=== PATIENT | male | born 1990 | race Caucasian/White ===

== ENCOUNTER 2017-08-20 22:01 | Emergency (ER) | payer SELFPAY ==
[2017-08-20 22:10] VITALS: BP 139/74; PULSE 55; TEMP 98; BMI 31.8
--- NOTE | 2017-08-20 23:16 | PDOC ---
History of Present Illness - General Chief Complaint: Cold Symptoms Stated Complaint: COLD SYMPTOMS Time Seen by Provider: 08/20/17 22:14 History Source: Patient Exam Limitations: No Limitations - History of Present Illness Initial Comments: 08/20/17 23:11 Best Contact: PCP:Dr. Dieudonne Brownlee Pmhx:N/A Pshx:N/A Allergies:NKDA 27-year-old male presents to the emergency department complaining of subjective fever, productive cough 4 days without headache, dizziness, lightheadedness, nausea/vomiting, chills, facial pain, nasal congestion, rhinorrhea, earaches, sore throat, neck pain/stiffness, back pains, chest pain, shortness of breath, abdominal pains, flank pains, urinary symptoms, extremity numbness or tingling sensation. Patient states he's been taking Mucinex which helps bring up his phlegm but doesn't subsided coughing. Past History - Past Medical History Allergies/Adverse Reactions: Allergies Allergy/AdvReac Type Severity Reaction Status Date / Time No Known Allergies Allergy Verified 08/20/17 22:10 Home Medications: Ambulatory Orders Oxycodone HCl/Acetaminophen [Percocet 5-325 mg Tablet -] 1 - 2 tab PO Q4H #10 tablet 02/20/14 Penicillin V Potassium [Pen Vee K -] 500 mg PO QID #40 tablet 02/20/14 - Suicide/Smoking/Psychosocial Hx Smoking Status: No Smoking History: Never smoked Have you smoked in the past 12 months: No Number of Cigarettes Smoked Daily: 0 Information on smoking cessation initiated: No Hx Alcohol Use: No Drug/Substance Use Hx: No Substance Use Type: None Review of Systems - Review of Systems Able to Perform ROS?: Yes Comments:: 08/20/17 23:13 CONSTITUTIONAL: Absent: fever, chills, diaphoresis, generalized weakness, malaise, loss of appetite HEENT: Absent: rhinorrhea, nasal congestion, throat pain, throat swelling, difficulty swallowing, mouth swelling, ear pain, eye pain, visual Changes CARDIOVASCULAR: Absent: chest pain, loss of consciousness, palpitations, irregular heart rate, peripheral edema RESPIRATORY: +cough Absent: shortness of breath, dyspnea with exertion, orthopnea, wheezing, stridor , hemoptysis GASTROINTESTINAL: Absent: abdominal pain, abdominal distension, nausea, vomiting, diarrhea, constipation, melena, hematochezia GENITOURINARY: Absent: dysuria, frequency, urgency, hesitancy, hematuria, flank pain, genital pain MUSCULOSKELETAL: Absent: myalgia, arthralgia, joint swelling SKIN: Absent: rash, itching, pallor HEMATOLOGIC/IMMUNOLOGIC: Absent: easy bleeding, easy bruising, lymphadenopathy, frequent infections Is the patient limited Tajik proficient: No *Physical Exam - Vital Signs Last Vital Signs Temp Pulse Resp BP Pulse Ox 98.0 F 55 L 16 139/74 98 08/20/17 22:08 08/20/17 22:08 08/20/17 22:08 08/20/17 22:08 08/20/17 22:08 - Physical Exam Comments: 08/20/17 23:14 GENERAL: Well developed, well nourished. Awake and alert. No acute distress. HEENT: Normocephalic, atraumatic. PERRLA, EOMI. No conjunctival pallor. Sclera are non- icteric. Moist mucous membranes. Oropharynx is clear. NECK: Supple. Full ROM. No JVD. Carotid pulses 2+ and symmetric, without bruits. No thyromegaly. No lymphadenopathy. CARDIOVASCULAR: Regular rate and rhythm. No murmurs, rubs, or gallops. Distal pulses are 2+ and symmetric. PULMONARY: No evidence of respiratory distress. Lungs clear to auscultation bilaterally. No wheezing, rales or rhonchi. ABDOMINAL: Soft. Non-tender. Non-distended. No rebound or guarding. No organomegaly. Normoactive bowel sounds. MUSCULOSKELETAL Normal range of motion at all joints. No bony deformities or tenderness. No CVA tenderness. EXTREMITIES: No cyanosis. No clubbing. No edema. No calf tenderness. SKIN: Warm and dry. Normal capillary refill. No rashes. No jaundice. NEUROLOGICAL: Alert, awake, appropriate. Cranial nerves 2-12 intact. No deficits to light touch and temperature in face, upper extremities and lower extremities. No motor deficits in the in face, upper extremities and lower extremities. Normoreflexic in the upper and lower extremities. Normal speech. Toes are down- going bilaterally. Gait is normal without ataxia. PSYCHIATRIC: Cooperative. Good eye contact. Appropriate mood and affect. ED Treatment Course - RADIOLOGY Radiology Studies Ordered: Category Date Time Status CHEST PA & LAT [RAD] Stat Radiology 08/20/17 22:57 Ordered Radiograph Interpretation: 08/20/17 23:15 CXR: 2v NAD *DC/Admit/Observation/Transfer Diagnosis at time of Disposition: Acute bronchitis Qualifiers: Bronchitis organism: unspecified organism Qualified Code(s): J20.9 - Acute bronchitis, unspecified - Discharge Dispostion Condition at time of disposition: Stable Decision to Admit order: No - Referrals Referrals: Augustin Benson MD, MD [Staff Physician] - - Patient Instructions Printed Discharge Instructions: DI for Acute Bronchitis Additional Instructions: Rest Increase fluids [id number] supportive care Follow-up with your physician or the weight loss centre manager listed on your discharge within 48 hours Please return back to the emergency department for severe/persistent or worsening symptoms - Post Discharge Activity
--- NOTE | 2017-08-20 23:18 | PDOC ---
*Physical Exam - Vital Signs Last Vital Signs Temp Pulse Resp BP Pulse Ox 98.0 F 55 L 16 139/74 98 08/20/17 22:08 08/20/17 22:08 08/20/17 22:08 08/20/17 22:08 08/20/17 22:08 Medical Decision Making - Medical Decision Making 08/20/17 23:18 Pt seen by Midlevel Provider under my direct supervision I agree with plan as outlined by Midlevel Provider *DC/Admit/Observation/Transfer Diagnosis at time of Disposition: Acute bronchitis Qualifiers: Bronchitis organism: unspecified organism Qualified Code(s): J20.9 - Acute bronchitis, unspecified - Discharge Dispostion Disposition: HOME Condition at time of disposition: Stable - Prescriptions Prescriptions: Azithromycin [Zithromax -] 250 mg PO UTDICT #6 tab - Referrals Referrals: Augustin Benson MD, MD [Staff Physician] - - Patient Instructions Printed Discharge Instructions: DI for Acute Bronchitis Additional Instructions: Rest Increase fluids [id number] supportive care Follow-up with your physician or the middle school humanities teacher listed on your discharge within 48 hours Please return back to the emergency department for severe/persistent or worsening symptoms - Post Discharge Activity
== END 2017-08-20 23:33 | disposition home or self-care (01) ==
LOC: JER 22:01
DX: J20.9 Acute bronchitis, unspecified (principal)
CPT/HCPCS: 71046-TC-FY; 99281-25

== ENCOUNTER 2018-01-04 06:40 | Emergency (ER) | payer SELFPAY ==
[2018-01-04 06:48] VITALS: TEMP 97.4
[2018-01-04] MEDS ORDERED: morphine CARPU-JECT 4 MG/1 ML DISP.SYRIN IVPUSH ONE ×2 (06:51→07:35)
[2018-01-04 06:52] VITALS: BMI 28.7
[2018-01-04] MEDS ORDERED: morphine SULFATE 4 MG/ML VIAL ONE ×2 (06:52→07:26)
--- NOTE | 2018-01-04 07:31 | PDOC ---
History of Present Illness - General Chief Complaint: Shoulder Dislocation Stated Complaint: R SHOULDER DISLOCATION Time Seen by Provider: 01/04/18 07:22 History Source: Patient Exam Limitations: No Limitations - History of Present Illness Initial Comments: 01/04/18 07:23 He is a 27-year-old male with a history of recurrent shoulder dislocation presents emergency department with right shoulder pain. He woke this morning stating that his shoulder was in severe pain and is unable to move it. Patient denies any traumatic injury. Patient reports for prior shoulder dislocations on the right, and one prior shoulder dislocation on the left. He denies numbness or tingling of the hand. Patient states at the age of 21 he was told that he needed surgery for his shoulder, but then was told by the surgeon that he was too young to have a. 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 MUSCULOSKELETAL: YES: RIGHT SHOULDER PAIN No: back pain, neck pain SKIN: No: lesions, pallor, rash or easy bruising. NEUROLOGIC: No: paresthesias, weakness ENDOCRINE: No: unexplained weight gain or loss HEMATOLOGIC/LYMPHATIC: No: anemia, easy bleeding, swelling nodes. PE: GENERAL: The patient is in no acute distress, crying. HEAD: Normal with no signs of trauma. EYES: PERRLA, EOMI, sclera anicteric, conjunctiva clear. ENT: Ears normal, nares patent, oropharynx clear without exudates. Moist mucous membranes. NECK: Normal range of motion, supple without midline tenderness LUNGS: Breath sounds equal, clear to auscultation bilaterally. HEART:Regular rate and rhythm, normal S1 and S2 without murmur ABDOMEN: Soft, nontender, no guarding, no rebound. EXTREMITIES: Right shoulder deformity, pain with any movement, UNABLE to flex or extend, unable to abduct or adduct Sensation in tact in the hand and overlying the deltoid radial, medial, ulnar motor and sensation in tact in the hand NEUROLOGICAL: Cranial nerves II through XII grossly intact. Normal speech. No focal neurological deficits. MUSCULOSKELETAL: Back non-tender to palpation, see above SKIN: Warm, Dry, normal turgor, no rashes or lesions noted. Past History - Past Medical History Allergies/Adverse Reactions: Allergies Allergy/AdvReac Type Severity Reaction Status Date / Time No Known Allergies Allergy Verified 01/04/18 06:52 Home Medications: Ambulatory Orders Cyclobenzaprine HCl 5 mg PO TID 3 Days #15 tablet 12/05/17 COPD: No - Suicide/Smoking/Psychosocial Hx Smoking Status: No Smoking History: Never smoked Have you smoked in the past 12 months: No Number of Cigarettes Smoked Daily: 0 Information on smoking cessation initiated: No Hx Alcohol Use: No Drug/Substance Use Hx: No Substance Use Type: None *Physical Exam - Vital Signs Last Vital Signs Temp Pulse Resp BP Pulse Ox 97.4 F L 104 H 26 H 157/92 99 01/04/18 06:48 01/04/18 06:48 01/04/18 06:48 01/04/18 06:48 01/04/18 06:48 Procedures - Joint Reduction Right Joint Reduction Site: right: Shoulder Pre-Procedure NV Exam: normal Conscious Sedation: No Reduction Attempts: 1 Procedure: Scapular Manipulation Post-Procedure NV Exam: normal Complications: No Post Joint Reduction Film: joint reduced ED Treatment Course - Medications Given in the ED: ED Medications Discontinued Medications Generic Name Dose Route Start Last Admin Trade Name Freq PRN Reason Stop Dose Admin Morphine Sulfate 4 mg 01/04/18 06:51 01/04/18 07:00 Morphine Injection - IVPUSH 01/04/18 06:52 4 mg ONCE ONE Administration Medical Decision Making - Medical Decision Making 01/04/18 07:42 Right shoulder appears to be dislocated Right shoulder reduction attempted after Morphine was given It appears that the shoulder may be reduced as pt can touch the opposite arm Will send for repeat xray 01/04/18 08:58 Post reduction film reveals appropriate shoulder reduction 2+ DP, 2+ PT Sensation in tact overlying the Deltoid R/M/U motor and sensation intact hand Will discharge to home I have expressed to this patient that he MUST follow up with Ortho Clinical impression: right shoulder dislocation, initial presentation *DC/Admit/Observation/Transfer Diagnosis at time of Disposition: Dislocation, shoulder, anterior Qualifiers: Encounter type: initial encounter Laterality: right Qualified Code(s): S43.014A - Anterior dislocation of right humerus, initial encounter - Discharge Dispostion Disposition: HOME Condition at time of disposition: Stable Decision to Admit order: No - Referrals Referrals: Adal Cali MD [Staff Physician] - Marck Toscano MD [Staff Physician] - Freddy Hernández MD [Staff Physician] - - Patient Instructions Printed Discharge Instructions: DI for Shoulder Dislocation Additional Instructions: Thank you for coming in to the ER today YOU MUST FOLLOW UP WITH THE CONCERT PIANIST YOU MAY NEED ADDITIONAL IMAGING OF YOUR SHOULDER When you injured your shoulder you may have damaged some tissues such as the capsule, ligaments, tendons and muscles in your shoulder. The following are some instructions to prevent any further damage and help these structures heal. Activities Do not lift and rotate your arm outwards. So not lift your arm above shoulder height in any direction. Do not lift heavy objects with your affected arm in general. If this happens again, return to the ER for any other concerns or complaints If possible wear your sling at all times However it can be removed when showering and getting dressed/undressed, sleeping You should wear the sling for as long as the Orthopedist instructs you to do so Take Motrin or Tylenol for pain For the first 48-72 hours you can also use an ice pack (or a bag of frozen peas ) in a damp towel on your shoulder to help with pain and swelling. An ice pack can be used for around 20 minutes every 1-2 hours - Post Discharge Activity Forms/Work/School Notes: Back to Work
[2018-01-04 07:35] VITALS: BP 135/85; PULSE 63
== END 2018-01-04 09:20 | disposition home or self-care (01) ==
LOC: JER 06:40
PROC: 0RSJXZZ Reposition Right Shoulder Joint, External Approach (ICD-10-PCS; principal; 2018-01-04)
DX: S43.014A Anterior dislocation of right humerus, initial encounter (principal); X58.XXXA Exposure to other specified factors, initial encounter; Y93.89 Activity, other specified; Y92.9 Unspecified place or not applicable
CPT/HCPCS: 73030-TC-RT-FY; 99282-25

== ENCOUNTER 2018-06-15 09:53 | Emergency (ER) | payer OTHER ==
[2018-06-15 10:06] VITALS: BP 125/98; PULSE 68; TEMP 98.5; BMI 33.7
--- NOTE | 2018-06-15 10:33 | PDOC ---
History of Present Illness - General Chief Complaint: Respiratory Stated Complaint: COUGHING Time Seen by Provider: 06/15/18 10:17 History Source: Patient Exam Limitations: Clinical Condition - History of Present Illness Initial Comments: 06/15/18 10:33 Patient with no significant past medical history present with complaint of three -day history of intermittent dry cough, nasal congestion, runny nose and throat irritation. Patient reported intermittent sore throat from coughing. Denies fever, chills, shortness of breath or chest pains. Denies any other symptoms Timing/Duration: other (3 days) Past History - Past Medical History Allergies/Adverse Reactions: Allergies Allergy/AdvReac Type Severity Reaction Status Date / Time No Known Allergies Allergy Verified 06/15/18 09:57 Home Medications: Ambulatory Orders Cyclobenzaprine HCl 5 mg PO TID 3 Days #15 tablet 12/05/17 Azithromycin [Zithromax Tri-Kaushal (3 DAYS) -] 500 mg PO DAILY #3 tablet 06/15/18 Benzonatate [Tessalon Pearls -] 100 mg PO TID PRN #21 capsule 06/15/18 Ipratropium Ransom 2 spray NS BID PRN #1 spray 06/15/18 COPD: No - Immunization History Immunization Up to Date: Yes - Suicide/Smoking/Psychosocial Hx Smoking Status: No Smoking History: Never smoked Have you smoked in the past 12 months: No Number of Cigarettes Smoked Daily: 0 Hx Alcohol Use: No Drug/Substance Use Hx: No Substance Use Type: None Review of Systems - Review of Systems Able to Perform ROS?: Yes Is the patient limited Iraqi proficient: No Constitutional: No: Chills, Fever, Malaise HEENTM: Yes: Symptoms Reported, See HPI, Nose Congestion, Throat Pain. No: Eye Pain, Blurred Vision, Tearing, Recent change in vision, Double Vision, Cataracts , Ear Pain, Ocular Prothesis, Ear Discharge, Nose Pain, Tinnitus, Nose Bleeding , Hearing Loss, Throat Swelling, Mouth Pain, Dental Problems, Difficulty Swallowing, Mouth Swelling, Other Respiratory: Yes: Symptoms reported, See HPI, Cough. No: Orthopnea, Shortness of Breath, SOB with Exertion, SOB at Rest, Stridor, Wheezing, Productive cough, Hemoptysis, Other Cardiac (ROS): No: Symptoms Reported, See HPI, Chest Pain, Edema, Irregular Heart Rate, Lightheadedness, Palpitations, Syncope, Chest Tightness, Other ABD/GI: No: Nausea, Vomiting All Other Systems: Reviewed and Negative *Physical Exam - Vital Signs Last Vital Signs Temp Pulse Resp BP Pulse Ox 98.5 F 68 18 125/98 98 06/15/18 09:58 06/15/18 09:58 06/15/18 09:58 06/15/18 09:58 06/15/18 09:58 - Physical Exam Comments: 06/15/18 10:34 GENERAL: Well developed, well nourished. Awake and alert. No acute distress. HEENT: Normocephalic, atraumatic. PERRLA, EOMI. No conjunctival pallor. Sclera are non-icteric. Moist mucous membranes. Oropharynx is clear. NECK: Supple. Full ROM. CARDIOVASCULAR: Regular rate and rhythm. No murmurs, rubs, or gallops. Distal pulses are 2+ and symmetric. PULMONARY: No evidence of respiratory distress. Lungs clear to auscultation bilaterally. No wheezing, rales or rhonchi. ABDOMINAL: Soft. Non-tender. Non-distended. No rebound or guarding. No organomegaly. Normoactive bowel sounds. MUSCULOSKELETAL Normal range of motion at all joints. SKIN: Warm and dry. Normal capillary refill. No rashes. No jaundice. NEUROLOGICAL: Alert, awake, appropriate. Gait is normal without ataxia. PSYCHIATRIC: Cooperative. Good eye contact. Appropriate mood General Appearance: Yes: Nourished, Appropriately Dressed. No: Apparent Distress Moderate Sedation - Procedure Monitoring Vital Signs: Procedure Monitoring Vital Signs Temperature 98.5 F 06/15/18 09:58 Pulse Rate 68 06/15/18 09:58 Respiratory Rate 18 06/15/18 09:58 Blood Pressure 125/98 06/15/18 09:58 O2 Sat by Pulse Oximetry (%) 98 06/15/18 09:58 Medical Decision Making - Medical Decision Making 06/15/18 10:35 Patient with no significant past medical history present with complaint of three -day history of URI symptoms with throat irritation from coughing. Patient with no fever or chills. Exam unremarkable lungs clear to auscultation bilateral and no pharyngeal erythema. Symptoms likely URI with throat pain from coughing. Patient is stable for outpatient management for URI with PCP follow-up. *DC/Admit/Observation/Transfer Diagnosis at time of Disposition: Cough, Sore throat URI (upper respiratory infection) Qualifiers: URI type: unspecified URI Qualified Code(s): J06.9 - Acute upper respiratory infection, unspecified - Discharge Dispostion Disposition: HOME Condition at time of disposition: Stable Decision to Admit order: No - Prescriptions Prescriptions: Azithromycin [Zithromax Tri-Kaushal (3 DAYS) -] 500 mg PO DAILY #3 tablet Benzonatate [Tessalon Pearls -] 100 mg PO TID PRN #21 capsule PRN Reason: Cough Ipratropium Ransom 2 spray NS BID PRN #1 spray PRN Reason: nasal congestion - Referrals Referrals: Augustin Caruso [Primary Care Provider] - - Patient Instructions Printed Discharge Instructions: Common Cold Additional Instructions: Take medications as prescribed. Increase fluid intake. Follow-up with primary cast needed. - Post Discharge Activity
== END 2018-06-15 10:46 | disposition home or self-care (01) ==
LOC: JERFT 09:53
DX: J06.9 Acute upper respiratory infection, unspecified (principal)
CPT/HCPCS: 99281-25

== ENCOUNTER 2019-04-04 11:37 | Emergency (ER) | payer OTHER ==
--- NOTE | 2019-04-04 11:46 | PDOC ---
History of Present Illness - General Chief Complaint: Sore Throat Stated Complaint: SORE THROAT Time Seen by Provider: 04/04/19 11:39 History Source: Patient Exam Limitations: No Limitations - History of Present Illness Initial Comments: 04/04/19 11:43 29 y/o male with sore throat that started today and getting worse. No fever or chills. Has not taken anything for the pain. No N/V/d/C. No headache. Past History - Past Medical History Allergies/Adverse Reactions: Allergies Allergy/AdvReac Type Severity Reaction Status Date / Time No Known Allergies Allergy Verified 04/04/19 11:38 Home Medications: Ambulatory Orders NK [No Known Home Medication] 04/04/19 COPD: No - Immunization History Immunization Up to Date: Yes - Psycho Social/Smoking Cessation Hx Smoking Status: No Smoking History: Never smoked Have you smoked in the past 12 months: No Number of Cigarettes Smoked Daily: 0 Hx Alcohol Use: No Drug/Substance Use Hx: No Substance Use Type: None Review of Systems - Review of Systems Able to Perform ROS?: Yes Is the patient limited Hungarian proficient: No Constitutional: No: Chills, Fever HEENTM: Yes: Throat Pain Respiratory: No: Cough, Shortness of Breath Cardiac (ROS): No: Chest Pain ABD/GI: No: Nausea, Vomiting All Other Systems: Reviewed and Negative *Physical Exam - Physical Exam General Appearance: Yes: Nourished, Appropriately Dressed. No: Apparent Distress HEENT: positive: EOMI, SUZI, Normal ENT Inspection (no redness, exudates or peritonsillar abscess noted), Normal Voice, Symmetrical, Pharynx Normal Neck: positive: Trachea midline, Normal Thyroid, Supple. negative: Tender, Rigid Respiratory/Chest: positive: Lungs Clear, Normal Breath Sounds, Respiratory Distress. negative: Chest Tender Cardiovascular: positive: Regular Rhythm, Regular Rate, S1, S2 Vascular Pulses: Femoral (R): 4+, Femoral (L): 4+, Carotid (R): 4+, Carotid (L) : 4+, Dorsalis-Pedis (R): 4+, Doralis-Pedis (L): 4+ Gastrointestinal/Abdominal: positive: Normal Bowel Sounds, Flat, Soft. negative : Tender, Organomegaly Lymphatic: positive: Adenopathy (b/l cervical lymphadenopathy). negative: Tenderness Musculoskeletal: positive: Normal Inspection. negative: CVA Tenderness Extremity: positive: Normal Capillary Refill, Normal Inspection, Normal Range of Motion. negative: Tender Integumentary: positive: Normal Color, Dry, Warm Neurologic: positive: motion picture set up worker II-XII NML intact, Fully Oriented, Alert, Normal Mood/ Affect, Normal Response, Motor Strength 08/13 ED Treatment Course - ADDITIONAL ORDERS Additional order review: 04/04/19 11:46 Sore throat for 1 day, will obtain strep test 04/04/19 12:15 Strep test negative Dx viral pharyngitis Fluids, rest, Tylenol If worsen return to ER Pt is in agreement with plan Discharge - Discharge Information Problems reviewed: Yes Clinical Impression/Diagnosis: Pharyngitis Qualifiers: Pharyngitis/tonsillitis etiology: unspecified etiology Qualified Code(s): J02.9 - Acute pharyngitis, unspecified Condition: Good Disposition: HOME - Admission No - Follow up/Referral Referrals: Augustin Caruso [Primary Care Provider] - - Patient Discharge Instructions Patient Printed Discharge Instructions: DI for Viral Pharyngitis Additional Instructions: Fluids, rest, Motrin If worsen return to ER - Post Discharge Activity
[2019-04-04 11:56] VITALS: BP 116/76; PULSE 52; TEMP 98.3; BMI 32.8
== END 2019-04-04 12:25 | disposition home or self-care (01) ==
LOC: FER 11:37
DX: J02.9 Acute pharyngitis, unspecified (principal)
CPT/HCPCS: 87070; 87880; 99281-25

== ENCOUNTER 2019-05-28 23:15 | Emergency (ER) | payer OTHER ==
[2019-05-28 23:20] VITALS: BP 136/69; PULSE 108; TEMP 99.1; BMI 33.1
--- NOTE | 2019-05-28 23:20 | PDOC ---
History of Present Illness - General Chief Complaint: Respiratory Stated Complaint: COUGH X 2 DAYS,FEVER Time Seen by Provider: 05/28/19 23:19 History Source: Patient Exam Limitations: No Limitations - History of Present Illness Initial Comments: 05/28/19 23:20 HPI 29 YOM with PMH chronic cervical neck disease and chronic shoulder pain/ dislocations presenting with clear cough x 2 days, today with fever (Tmax 102) and chills/rigors. He endorse chest tightness worse with the coughing episodes, +clear nasal congestion, left ear pain, sweats, headache and dizziness. Also associated with generalized malaise. Today had 3 episodes of nonbloody watery brown stools/diarrhea and nausea. He has been cycling between tylenol and motrin (last dose of tylenol about 2 hours [employer]) with some improvement. he has also tried nyquil and mucinex with minimal improvement. pt baseline has right sided shoulder and neck pain with chronic neck pain/ degenerative disc disease, with prior recurrent shoulder dislocations. +sick contacts several weeks ago where family members had URI symptoms, who have all improved. Denies neck stiffness, myalgias, body aches, arthralgias, syncope, palpitation, weakness, vomiting, abdominal pain, bladder and bowel problems, focal weakness/ paresthesias, leg swelling/pain, rash. No travel. No new changes in medications. No suspicious food intake Allergies: None Past Medical History/PSH: as above Social history: Lives with family. No tobacco, ETOH or drug use. Meds: none Family history: noncontributory Review of systems Constitutional: +fever, chills, generalized weakness and sweats. HEENT: +headache or dizziness. +nasal congestion. +left ear pain. No visual/ hearing disturbances. no eye pain or discharge. CVS: no syncope. +chest pain Resp: +cough, SOB Gastrointestinal: no abdominal pain, No vomiting. +diarrhea and nausea. Genitourinary: no urinary sx, hematuria. MUSCULOSKELETAL: No joint pain and swelling. No neck stiffness, or back pain. SKIN: no redness or skin changes, no discharge, no rash. No wounds. Hematologic: no easy bruising/bleeding. NEUROLOGIC: No LOC or altered mental status. No weakness, numbness or tingling. Psych: no anxiety or depression Allergic/Immunologic: no allergies All other systems reviewed and negative, or as documented in HPI. Physical exam General: Well appearing, awake and alert, NAD. HEENT: NCAT, PERRL, EOMI, clear conjunctiva, anicteric, moist mucus membranes, clear oropharynx, no oral lesions.. uvula midline. normal phonation, TM clear bilaterally, no sinus tenderness to percussion. Neck: neck supple, FROM, no meningeal signs, neg brudzinki's or kernig's sign. Resp: CTAB, normal and even respirations, no respiratory distress CVS: +tachycardia, no murmurs, 2+ peripheral pulses throughout, no peripheral edema Abdomen: soft, NTND, no rebound or guarding. Back: nontender, normal inspection and ROM MSK: no edema, CHAN x4, ROM intact. No clubbing or cyanosis. normal bulk and tone. Extremities: no calf tenderness Neuro: alert, oriented appropriately; no focal neurologic deficits Psych: Calm and cooperative Skin: warm and well perfused, cap refill <2 sec, normal color, no rash or skin discoloration. 05/28/19 23:41 05/28/19 23:44 Past History - Past Medical History Allergies/Adverse Reactions: Allergies Allergy/AdvReac Type Severity Reaction Status Date / Time No Known Allergies Allergy Verified 05/28/19 23:16 Home Medications: Ambulatory Orders Benzonatate [Tessalon Pearls -] 100 mg PO TID PRN #15 capsule 05/28/19 Oseltamivir Phosphate [Tamiflu -] 75 mg PO BID #10 capsule 05/29/19 COPD: No - Immunization History Immunization Up to Date: Yes - Psycho Social/Smoking Cessation Hx Smoking Status: No Smoking History: Never smoked Have you smoked in the past 12 months: No Number of Cigarettes Smoked Daily: 0 Information on smoking cessation initiated: No 'Breaking Loose' booklet given: 04/04/19 Hx Alcohol Use: No Drug/Substance Use Hx: No Substance Use Type: None *Physical Exam - Vital Signs Last Vital Signs Temp Pulse Resp BP Pulse Ox 99.1 F 108 H 16 136/69 99 05/28/19 23:16 05/28/19 23:16 05/28/19 23:16 05/28/19 23:16 05/28/19 23:16 Medical Decision Making - Medical Decision Making 02/17/20 23:48 Vital Signs Temp Pulse Resp BP Pulse Ox 99.1 F 108 H 16 136/69 99 05/28/19 23:16 05/28/19 23:16 05/28/19 23:16 05/28/19 23:16 05/28/19 23:16 Vital signs reviewed here no fever, patient did take Tylenol several hours prior to presentation so likely has defervesced. Mild tachycardia 108 but is nontoxic and in no acute distress. Hemodynamically appropriate, saturations 99 % on room air, no respiratory distress Differential diagnosis includes viral syndrome, influenza, dehydration, bronchitis, pneumonia. Lungs are clear to auscultation, no focal findings elicited so unlikely to be pneumonia. Again patient does not have a fever while here and is nonseptic appearing Given his timeframe of symptoms will obtain flu swab, risks and benefits of flu testing and treatment was discussed with the patient and he prefers to check for the flu and would like testing. no oropharyngeal findings, normal HEENT exam as documented, no strep testing indicated Given ibuprofen, Rx Tessalon Perles for cough. Supportive care measures were advised as this is most likely upper respiratory infection secondary to viral illness, no evidence to utilize antibiotics are indicated this time is doubt this is bacterial. Patient was given instructions including salt water gargles, lemon, tea, elke and honey to soothe the throat as well as a cough Pt to be discharged in stable condition. Patient and family made aware of clinical impression, treatment recommendations and disposition plan, return precautions discussed (including but not limited to new or persistent/worsening symptoms, pain, fevers, or signs of infection, chest pain, respiratory distress , inability to tolerate oral intake, dehydration, syncope, or neurologic changes ). Follow up with PMD and/or specialist as recommended, follow up information provided, take medications as instructed for duration of time. continue with supportive care, avoid triggers and precipitants. All questions answered to patient's satisfaction and expressed understanding and comfort with this. At the time of discharge, the patient is alert, clinically improved, tolerating po and verbalizes understanding of instructions, satisfied with the care received and felt comfortable with the plan. Patient does not suffer from an acute life- threatening medical condition at this time and is safe for outpatient follow- up. 05/29/19 01:55 - influenza test came back positive for flu A called the patient and discussed results, contact precautions, mask, hydration and hand washing. avoid contacts with immunocompromised individuals, elderly, very young children, for risk of spreading infection and potential complications minimize contacts/exposure until >24 hours of being fever free tamiflu sent to pharmacy, BID x 5 days. pt elects for tamiflu, which can reduce course <20 hours, but no necessarily the symptoms. Discharge - Discharge Information Problems reviewed: Yes Clinical Impression/Diagnosis: Influenza A URI (upper respiratory infection) Qualifiers: URI type: unspecified URI Qualified Code(s): J06.9 - Acute upper respiratory infection, unspecified Condition: Stable Disposition: HOME - Admission No - Additional Discharge Information Prescriptions: Benzonatate [Tessalon Pearls -] 100 mg PO TID PRN #15 capsule PRN Reason: Cough Oseltamivir Phosphate [Tamiflu -] 75 mg PO BID #10 capsule - Follow up/Referral [place] [facility] [facility] [place] [facility] [place]] [facility] [Provider Group] - Patient Discharge Instructions Patient Printed Discharge Instructions: Common Cold, DI for Cough -- Adult, DI for Viral Upper Respiratory Infection -- Adult Additional Instructions: RESPIRATORY infection recommendations: these are more natural supplementation that can help you with your symptoms: salt water gargles, 1-2 spoonful of honey and warm lemon tea is appropriate as well for soothing qualities for sore throat/cough. minimize spread of infection given contagious nature, and cover your mouth and wash your hands adequately with soap and water. Stay well hydrated and rest. Cool air - walk around outdoors in the evening. May also try hot shower steam. This can alleviate the congestion and cough. You can also use Riccola - dual action with lemon/honey to soothe your throat and cough. You can also take tessalon perles three times a day as needed for the cough if the above do not work You can take afrin sprays twice a day (not more than 3 days) for nasal congestion OR sudafed via the pharmacy for the nasal congestion (behind the pharmacy counter for the higher dosing). follow up on the flu swab we obtained here Return precautions include respiratory distress, difficulty breathing, cyanosis , chest pain, lethargy, confusion, dehydration, high fevers or pain. - Post Discharge Activity
[2019-05-28] MEDS ORDERED: IBUPROFEN 600 MG TABLET (FP) PO ONE ×2 (23:37→23:39)
== END 2019-05-28 23:47 | disposition home or self-care (01) ==
LOC: FER 23:15
DX: J09.X2 Influenza due to identified novel influenza A virus with other respiratory manifestations (principal); J06.9 Acute upper respiratory infection, unspecified
CPT/HCPCS: 87804; 99283-25

== ENCOUNTER 2021-02-22 17:05 | Emergency (ER) | payer OTHER ==
[2021-02-22 17:27] VITALS: BMI 32.8
[2021-02-22 17:45] VITALS: BP 144/77; PULSE 77; TEMP 98.9
== END 2021-02-22 18:11 | disposition home or self-care (01) ==
LOC: FER 17:05
DX: J06.9 Acute upper respiratory infection, unspecified (principal)
CPT/HCPCS: 87804; 87807; 99283-25